=== PATIENT | male | born 1990 | race Caucasian/White ===

== ENCOUNTER 2018-02-01 01:37 | Emergency (ER) | payer MEDICAID ==
[~2018-02-01] VITALS: Ht 188 cm; Wt 77.1 kg
[~2018-02-01 01:37] MED LIST: VICODIN 5/325 PO
[2018-02-01] MEDS ORDERED: Keflex500 MG PO (05:29)
== END 2018-02-01 05:43 | disposition home or self-care (01) ==
LOC: ER 01:37
DX: S70.352A Superficial foreign body, left thigh, initial encounter (principal); W45.8XXA Other foreign body or object entering through skin, initial encounter; Z87.891 Personal history of nicotine dependence
CPT/HCPCS: 10120; 90471; 90714; 99283